=== PATIENT | female | born 1990 | race Caucasian/White ===

== ENCOUNTER 2019-04-19 19:22 | Emergency (ER) | payer OTHER ==
[~2019-04-19] VITALS: Ht 157.5 cm; Wt 71.2 kg
[2019-04-19] MEDS ORDERED: PRENA1 TRUE CO1 EACH (19:35)
== END 2019-04-19 23:50 | disposition home or self-care (01) ==
LOC: ER 19:22
DX: O26.892 Other specified pregnancy related conditions, second trimester (principal); R10.2 Pelvic and perineal pain; Z34.82 Encounter for supervision of other normal pregnancy, second trimester

== ENCOUNTER 2019-09-20 07:50 | Inpatient (IN) | payer OTHER ==
[~2019-09-20] VITALS: Ht 157.5 cm; Wt 3.2 kg
[~2019-09-20 07:50] MED LIST: PRENA1 TRUE CO1 EACH
== END 2019-09-23 13:19 | disposition home or self-care (01) | DRG 785 ==
LOC: OB/GYN 07:50 → LDR 07:50 → OB/GYN 15:53
PROVIDERS: ADMIT Obstetrics & Gynecology
PROC: 0UL70ZZ Occlusion of Bilateral Fallopian Tubes, Open Approach (ICD-10-PCS; 2019-09-20)
PROC: 4A1HXCZ Monitoring of Products of Conception, Cardiac Rate, External Approach (ICD-10-PCS; 2019-09-20)
PROC: 10D00Z1 Extraction of Products of Conception, Low, Open Approach (ICD-10-PCS; principal; 2019-09-20 12:00)
DX: O82 Encounter for cesarean delivery without indication (principal); Z3A.38 38 weeks gestation of pregnancy; Z37.0 Single live birth; Z30.2 Encounter for sterilization